=== PATIENT | female | born 1995 | race Caucasian/White ===

== ENCOUNTER 2019-10-15 19:34 | Emergency (ER) | payer SELFPAY ==
[~2019-10-15] VITALS: Ht 162.6 cm; Wt 89.8 kg
[2019-10-15 19:35] VITALS: BP 124/72
== END 2019-10-15 19:56 | disposition home or self-care (01) ==
LOC: ER 19:34
DX: J40 Bronchitis, not specified as acute or chronic (principal)

== ENCOUNTER 2022-05-31 22:01 | Emergency (ER) | payer OTHER ==
[~2022-05-31] VITALS: Ht 162.6 cm; Wt 99.8 kg
[2022-05-31 22:30] VITALS: BP 140/78
--- NOTE | 2022-05-31 23:41 | NUR ---
Patient discharged to home in stable condition. Written and verbal after care instructions given. Patient verbalizes understanding of instruction. Pt ambulatory with a steady gait
== END 2022-05-31 23:41 | disposition home or self-care (01) ==
LOC: ER 22:10
DX: R21 Rash and other nonspecific skin eruption (principal); M79.632 Pain in left forearm; Z60.2 Problems related to living alone